=== PATIENT | male | born 1990 | race Caucasian/White ===

== ENCOUNTER → 2025-01-20 15:03 | Outpatient (BNVA) | payer SELFPAY | PROVIDERS: Visit Provider Specialist | DX: M25.561 Pain in right knee (principal); S89.91XA Unspecified injury of right lower leg, initial encounter; X58.XXXA Exposure to other specified factors, initial encounter | CPT/HCPCS: 73560; 73565 ==

== ENCOUNTER 2025-02-01 14:58 | Outpatient (CLI) | payer SELFPAY ==
--- NOTE | 2025-02-01 15:15 | MR_ITS ---
WS: [id number] MRI RIGHT KNEE NONCONTRAST TECHNIQUE: Axial PD, coronal PD fat sat, coronal PD, sagittal PD, and sagittal PD fat-sat images obtained. CLINICAL INFORMATION: right knee injury COMPARISON: None. FINDINGS: Some images degraded by motion. Distal quadriceps and patella tendons are intact. Advanced grade IV chondromalacia patella with full-thickness cartilage defects and cartilage fissuring advanced for patient this age. Moderate to large suprapatellar effusion. ACL and PCL appear intact. Suprapatellar plica partially visualized. Medial and lateral collateral ligaments appear intact. Normal popliteal fossa. Suspected tear of the posterior horn lateral meniscus extending to the meniscal root. No acute appearing medial meniscal tears. Moderate joint space narrowing medial and lateral joint compartments advanced for a patient this age. Grade II chondromalacia. MR/MR knee RT wo con* [id number] IMPRESSION: 1. 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 2. Moderate narrowing of the medial and lateral joint compartments with grade II chondromalacia also advanced for patient this age. 3. Moderate suprapatellar effusion with partially visualized plica. 4. ACL and PCL appear intact. 5. Tear involving the posterior horn lateral meniscus extending to the menisca l root. 6. Medial and lateral collateral ligaments appear intact. Outbridge grading: grade IV: full-thickness cartilage loss with underlying bone reactive changes
== END 2025-02-01 14:59 | disposition home or self-care (01) ==
PROVIDERS: PCP Specialist; Visit Provider Specialist
DX: S83.281A Other tear of lateral meniscus, current injury, right knee, initial encounter (principal); X58.XXXA Exposure to other specified factors, initial encounter; M22.41 Chondromalacia patellae, right knee; M25.461 Effusion, right knee; M67.51 Plica syndrome, right knee
CPT/HCPCS: 73721